=== PATIENT | female | born 1965 | race American Indian/Alaskan Native ===

== ENCOUNTER 2017-08-02 15:37 | Outpatient (CLI) | payer OTHER ==
--- NOTE | 2017-08-02 16:56 | XRay Report ---
FINAL REPORT EXAM: XR HIP 2-3V LT HISTORY: PAIN IN JOINT OF LEFT HIP TECHNIQUE: Two views of the left hip PRIORS: None. FINDINGS: There is mild degenerative joint space narrowing. No acute fracture or dislocation is identified. The femoral head maintains normal contour. The adjacent bony pelvis demonstrates no acute findings. IMPRESSION: Mild degenerative joint space narrowing
--- NOTE | 2017-08-02 17:02 | XRay Report ---
FINAL REPORT EXAM: XR SPINE LUMBOSACRAL 2-3V HISTORY: LOW BACK PAIN TECHNIQUE: Lumbar spine 3 views PRIORS: None. FINDINGS: Vertebral bodies demonstrate normal height and alignment. Degenerative disc space narrowing is present at L4-5 and L5-S1. Facet joint arthropathy present most prominent at L4-5 and L5-S1. There is no evidence of spondylolisthesis. Transverse and spinous processes are intact SI joints are unremarkable. IMPRESSION: Facet joint arthropathy and degenerative disc changes L4-5 L5-S1
--- NOTE | 2017-08-02 17:03 | XRay Report ---
FINAL REPORT EXAM: XR KNEE 1-2V RT HISTORY: PAIN IN JOINT RIGHT KNEE TECHNIQUE: Right knee 2 views PRIORS: None. FINDINGS: No fracture is identified. No dislocation seen. No evidence of joint effusion. Patella demonstrates normal positioning. No acute bony abnormality identified. IMPRESSION: Negative knee series
== END 2017-08-02 15:38 | disposition home or self-care (01) ==
LOC: XRAY 15:37
PROVIDERS: ATTEND Internal Medicine
DX: Z02.71 Encounter for disability determination (principal); M12.88 Other specific arthropathies, not elsewhere classified, other specified site; M47.897 Other spondylosis, lumbosacral region; M25.552 Pain in left hip; M25.561 Pain in right knee
CPT/HCPCS: 72100

== ENCOUNTER 2017-10-12 18:34 | Emergency (ER) | payer SELFPAY ==
--- NOTE | 2017-10-12 19:41 | XRay Report ---
FINAL REPORT EXAM: XR FOOT 3+V RT HISTORY: foot pain r/t injury TECHNIQUE: 3 views of right foot. PRIORS: None. FINDINGS: No apparent fracture or dislocation. Mild degenerative change in the great toe IP joint. Remainder joint spaces maintained. Soft tissues grossly unremarkable. IMPRESSION: 1. No acute osseous abnormality.
[2017-10-12] MEDS ORDERED: CATAPRES PO ONE (23:38)
--- NOTE | 2017-10-12 23:47 | Emergency Department Report ---
Chief Complaint: Extremity Injury, Lower Stated Complaint: RIGHT FOOT PAIN Time Seen by Provider: 10/12/17 23:43 - HPI History of Present Illness: Patient here due to injury of her right foot. Patient blood pressure is very elevated and she says she takes her blood pressure medication daily. She denies any headache, chest pain or shortness of breath. Denies any dizziness or nausea. - ROS Review of Systems: All systems are negative unless stated in HPI above - Exam Vital Signs: Vital Signs 10/12/17 18:37 Temperature 98.5 F Pulse Rate 93 H Respiratory 20 Rate Blood Pressure 195/116 O2 Sat by Pulse 100 Oximetry Physical Exam: Gen.: This is a 51-year-old female well-nourished well-developed in no acute distress. Right foot with mild swelling. Normal pulses. Unable to weight-bear MSE screening note: Focused history and physical exam performed. Due to findings the following was ordered: ED Medical Decision Making - Medical Decision Making MDM screening: Patient ordered clonidine 0.2 mg her elevated blood pressure. X- ray of right foot done. Patient awaited to be seen by physician. ED Disposition for MSE Condition: Stable Referrals: PRIMARY CARE, [Primary Care Provider] - 3-5 Days
[2017-10-13] MEDS ORDERED: COREG PO ONE (01:14)
[2017-10-13] MEDS ORDERED: NORVASC PO ONE (01:14)
[2017-10-13 01:43] VITALS: BP 167/96
[2017-10-13] MEDS ORDERED: MORPHINE IM ONE (01:48)
[2017-10-13] MEDS ORDERED: ZOFRAN IM ONE (01:48)
--- NOTE | 2017-10-13 01:53 | Emergency Department Report ---
ED General Adult HPI - General Chief complaint: Extremity Injury, Lower Stated complaint: RIGHT FOOT PAIN Time Seen by Provider: 10/12/17 23:43 Source: patient Mode of arrival: Wheelchair Limitations: No Limitations - History of Present Illness Initial comments: Patient is 51 years old female history of hypertension. Patient presented to the ER for evaluation of right foot pain after she fell on a coffee table at home this afternoon. Patient also found to have a blood pressure 195/116. Patient stated that her blood pressure usually controls her Medications. Patient denied any headache, neck pain or stiffness, weakness, numbness or tingling sensation. The patient denied any bowel or bladder incontinence. Patient is able to walk after this incident. - Related Data Allergies Allergy/AdvReac Type Severity Reaction Status Date / Time lisinopril AdvReac Anaphylaxis Unverified 08/02/17 15:40 ED Review of Systems ROS: Stated complaint: RIGHT FOOT PAIN Other details as noted in HPI Comment: All other systems reviewed and negative Constitutional: denies: chills, fever Respiratory: denies: cough, orthopnea, shortness of breath Cardiovascular: denies: chest pain, palpitations, dyspnea on exertion Gastrointestinal: denies: abdominal pain, nausea, vomiting, diarrhea, constipation, hematemesis Musculoskeletal: denies: back pain Neurological: denies: headache, weakness, numbness, paresthesias, confusion, abnormal gait, vertigo ED Past Medical Hx - Past Medical History Hx Hypertension: Yes Hx Arthritis: Yes Additional medical history: elevated cholesterol - Surgical History Additional Surgical History: hysterectomy - Social History Smoking Status: Never Smoker Substance Use Type: None ED Physical Exam - General Limitations: No Limitations General appearance: alert, in no apparent distress - Head Head exam: Present: atraumatic, normocephalic, normal inspection - Eye Eye exam: Present: normal appearance - ENT ENT exam: Present: normal exam, normal orophraynx, mucous membranes moist - Neck Neck exam: Present: normal inspection, full ROM. Absent: tenderness, meningismus - Respiratory Respiratory exam: Present: normal lung sounds bilaterally. Absent: respiratory distress, wheezes, rales, rhonchi, stridor, chest wall tenderness, accessory muscle use, decreased breath sounds, prolonged expiratory - Cardiovascular Cardiovascular Exam: Present: regular rate, normal rhythm, normal heart sounds - GI/Abdominal GI/Abdominal exam: Present: soft, normal bowel sounds. Absent: distended, tenderness, guarding, rebound, rigid - Extremities Exam Extremities exam: Present: normal inspection, full ROM, tenderness (right ankle and foot), normal capillary refill. Absent: pedal edema, calf tenderness - Back Exam Back exam: Present: normal inspection, full ROM. Absent: CVA tenderness (R), CVA tenderness (L), muscle spasm, paraspinal tenderness, vertebral tenderness, rash noted - Neurological Exam Neurological exam: Present: alert, oriented X3, CN II-XII intact, normal gait - Skin Skin exam: Present: warm, intact, normal color ED Course Vital Signs 10/12/17 10/13/17 10/13/17 18:37 01:00 01:05 Temperature 98.5 F 97.9 F Pulse Rate 93 H 66 Respiratory 20 16 Rate Blood Pressure 195/116 173/104 Blood Pressure 180/106 [Left] O2 Sat by Pulse 100 100 100 Oximetry 10/13/17 10/13/17 01:19 01:30 Temperature Pulse Rate 77 Respiratory Rate Blood Pressure 173/104 167/96 Blood Pressure [Left] O2 Sat by Pulse 98 Oximetry - Reevaluation(s) Reevaluation #1: 10/13/17 01:54 Patient blood pressure improved with 0.2 mg of clonidine and pain medicine. Critical care attestation.: If time is entered above; I have spent that time in minutes in the direct care of this critically ill patient, excluding procedure time. ED Disposition Clinical Impression: Foot contusion, Malignant hypertension Disposition: - TO HOME OR SELFCARE Is pt being admited?: No Condition: Stable Instructions: Hypertension (ED), Foot Contusion (ED) Referrals: PRIMARY CARE, [Primary Care Provider] - 3-5 Days
== END 2017-10-13 02:15 | disposition home or self-care (01) ==
LOC: ED 18:34
DX: S90.31XA Contusion of right foot, initial encounter (principal); I10 Essential (primary) hypertension; M19.90 Unspecified osteoarthritis, unspecified site; E78.00 Pure hypercholesterolemia, unspecified; Z90.710 Acquired absence of both cervix and uterus; Z88.8 Allergy status to other drugs, medicaments and biological substances; X58.XXXA Exposure to other specified factors, initial encounter; Y93.89 Activity, other specified; Y92.89 Other specified places as the place of occurrence of the external cause; Y99.8 Other external cause status
CPT/HCPCS: 73630; 96372; 99283; J2270; J2405